=== PATIENT | female | born 1945 | race African-American/Black ===

== ENCOUNTER 2022-03-10 08:48 | Day surgery (SDC) | payer OTHER ==
[2022-03-04 11:37] VITALS: BMI 36.6
[2022-03-10] MEDS ORDERED: PROPOFOL 20 ML ONE ×2 (11:44→13:59)
[2022-03-10] MEDS ORDERED: VANCOMYCIN 1,000 MG VIAL (RESTRICTED TO ID ONLY) ONE (11:44)
[2022-03-10] MEDS ORDERED: ceFAZolin SODIUM 1 GM VIAL ONE ×2 (11:44→13:59)
[2022-03-10] MEDS ORDERED: BUPIVACAINE HCL 50 ML ONE (11:50)
[2022-03-10] MEDS ORDERED: MIDAZOLAM HCL 2 MG/2 ML SINGLE DOSE VIAL ONE ×3 (11:50→14:31)
[2022-03-10] MEDS ORDERED: BUPIVACAINE HCL/PF 2.5 MG/ML - 30 ML VIAL IJ ONE (11:51)
[2022-03-10] MEDS ORDERED: oxyCODONE HCL 5 MG TABLET PO PRN (13:14)
[2022-03-10] MEDS ORDERED: ONDANSETRON 4 MG/2 ML VIAL IVPUSH PRN ×2 (13:14→15:02)
[2022-03-10] MEDS ORDERED: MAGNESIUM HYDROX 2400MG/30ML ORAL SUSPENSION 30 ML CUP PO PRN (15:02)
[2022-03-10] MEDS ORDERED: KETOROLAC TROMETHAMINE 30 MG/1 ML VIAL ONE (15:09)
[2022-03-10] MEDS ORDERED: FENTANYL CITRATE/PF 50 MCG/ML VIAL ONE ×2 (15:10→15:21)
[2022-03-10] MEDS ORDERED: KETOROLAC TROMETHAMINE 15 MG/ML VIAL IVPUSH ONE (15:11)
[2022-03-10] MEDS ORDERED: ACETAMINOPHEN 1000 MG/100 ML BAG IVPB ONE (15:12)
[2022-03-10] MEDS ORDERED: LACTATED RINGERS SOLUTION 1,000 ML IV SCH (15:15)
[2022-03-10] MEDS ORDERED: oxyCODONE HCL 5 MG TABLET ONE (15:47)
[2022-03-10] MEDS: oxyCODONE HCL 5 MG TABLET PO PRN (15:53)
[2022-03-10] MEDS ORDERED: HYDROmorphone HCl 2 MG/ML VIAL IVPUSH PRN (16:00)
[2022-03-10] MEDS ORDERED: HYDROmorphone HCL/PF 1 MG/ML VIAL ONE (16:05)
[2022-03-10] MEDS ORDERED: CEFAZOLIN SODIUM 2 GM VIAL ONE ×2 (18:08→23:55)
[2022-03-10] MEDS ORDERED: DEXTROSE 5%-WATER 100 ML IVPB ONE ×2 (18:08→23:55)
[2022-03-10] MEDS: CEFAZOLIN SODIUM 2 GM in DEXTROSE 5%-WATER 100 ML IVPB SCH (18:10)
[2022-03-10] MEDS: oxyCODONE HCL 10 MG SUSTAINED ACTING TABLET PO SCH (21:38)
[2022-03-10] MEDS: SENNOSIDES/DOCUSATE COMBO (SENNA PLUS) TABLET (UD) PO SCH (21:40)
[2022-03-10] MEDS: ATORVASTATIN CA 20 MG TABLET (FP) PO SCH (21:40)
[2022-03-10] MEDS: ASPIRIN 81 MG CHEWABLE TABLETS PO SCH (21:40)
[2022-03-10] MEDS ORDERED: HYDROCHLOROTHIAZIDE 25 MG TABLET (FP) PO SCH (22:00)
[2022-03-11] MEDS: CEFAZOLIN SODIUM 2 GM in DEXTROSE 5%-WATER 100 ML IVPB SCH ×2 (00:05→06:18)
[2022-03-11] MEDS ORDERED: DEXTROSE 5%-WATER 100 ML IVPB ONE (05:45)
[2022-03-11] MEDS ORDERED: CEFAZOLIN SODIUM 2 GM VIAL ONE (05:46)
[2022-03-11] MEDS: oxyCODONE HCL 5 MG TABLET PO PRN ×2 (06:20→09:51)
[2022-03-11 09:06] LABS: CALCIUM 9.6 mg/dl (8.5-10); CREATININE 1.4 mg/dl (0.55-1.3)
[2022-03-11 09:08] LABS: HEMATOCRIT 27.8 % (32.4-45.2); HEMOGLOBIN 9.4 G/dL (10.7-15.3); MCH 32.2 pg (25.7-33.7); MCHC 33.8 g/dl (32.0-36.0); MEAN CELL VOLUME 95.3 fl (80-96); MEAN PLT VOLUME 7.8 fl (7.5-11.1); PLATELET COUNT 233.9 10^3/uL (134-434); RBC 2.92 10^6/uL (3.60-5.2); RDW 14.4 % (11.6-15.6); WHITE BLOOD COUNT 9.1 10^3/uL (4.0-10.8)
[2022-03-11] MEDS: PANTOPRAZOLE 40 MG TABLET PO SCH (09:43)
[2022-03-11] MEDS: CELECOXIB 200 MG CAPSULE PO SCH (09:43)
[2022-03-11] MEDS: ASPIRIN 81 MG CHEWABLE TABLETS PO SCH ×2 (09:43→21:40)
[2022-03-11] MEDS: SENNOSIDES/DOCUSATE COMBO (SENNA PLUS) TABLET (UD) PO SCH ×2 (09:43→21:40)
[2022-03-11] MEDS: QUINAPRIL HCL 20 MG TABLET PO SCH (09:43)
[2022-03-11 10:02] LABS: ALBUMIN 3.2 g/dl (3.4-5.0); BILIRUBIN,TOTAL 0.4 mg/dl (0.2-1); CALCIUM 9.6 mg/dl (8.5-10); CREATININE 1.4 mg/dl (0.55-1.3); TOT PROT 6.6 g/dl (6.4-8.2)
[2022-03-11 10:16] LABS: HEMATOCRIT 29.3 % (32.4-45.2); HEMOGLOBIN 9.9 G/dL (10.7-15.3); MCH 31.9 pg (25.7-33.7); MCHC 33.7 g/dl (32.0-36.0); MEAN CELL VOLUME 94.8 fl (80-96); MEAN PLT VOLUME 7.9 fl (7.5-11.1); PLATELET COUNT 259.4 10^3/uL (134-434); RBC 3.09 10^6/uL (3.60-5.2); RDW 14.1 % (11.6-15.6); WHITE BLOOD COUNT 9.5 10^3/uL (4.0-10.8)
[2022-03-11] MEDS: oxyCODONE HCL 10 MG SUSTAINED ACTING TABLET PO SCH ×2 (10:42→21:40)
[2022-03-11] MEDS: ATORVASTATIN CA 20 MG TABLET (FP) PO SCH (21:40)
[2022-03-12] MEDS: oxyCODONE HCL 5 MG TABLET PO PRN ×2 (07:41→14:41)
[2022-03-12 08:21] LABS: HEMATOCRIT 26.9 % (32.4-45.2); HEMOGLOBIN 9.1 G/dL (10.7-15.3); MCH 32.1 pg (25.7-33.7); MCHC 33.9 g/dl (32.0-36.0); MEAN CELL VOLUME 94.8 fl (80-96); PLATELET COUNT 235.1 10^3/uL (134-434); RBC 2.84 10^6/uL (3.60-5.2); RDW 13.9 % (11.6-15.6); WHITE BLOOD COUNT 10.9 10^3/uL (4.0-10.8)
[2022-03-12 08:42] LABS: HEMOGLOBIN 9.3 G/dL (10.7-15.3); MCH 31.6 pg (25.7-33.7); MEAN CELL VOLUME 95.4 fl (80-96); MEAN PLT VOLUME 7.8 fl (7.5-11.1); PLATELET COUNT 234.6 10^3/uL (134-434); RBC 2.93 10^6/uL (3.60-5.2); RDW 14.5 % (11.6-15.6); WHITE BLOOD COUNT 10.9 10^3/uL (4.0-10.8)
[2022-03-12 08:48] LABS: ALBUMIN 2.9 g/dl (3.4-5.0); BILIRUBIN,TOTAL 0.6 mg/dl (0.2-1); CALCIUM 9.4 mg/dl (8.5-10); CREATININE 1.6 mg/dl (0.55-1.3); TOT PROT 6.1 g/dl (6.4-8.2)
[2022-03-12] MEDS ORDERED: POTASSIUM CHLORIDE TABS 10 MEQ TABLET.ER (FP) PO ONE (09:00)
[2022-03-12] MEDS: oxyCODONE HCL 10 MG SUSTAINED ACTING TABLET PO SCH ×2 (09:27→21:12)
[2022-03-12] MEDS: CELECOXIB 200 MG CAPSULE PO SCH (09:27)
[2022-03-12] MEDS: SENNOSIDES/DOCUSATE COMBO (SENNA PLUS) TABLET (UD) PO SCH ×2 (09:28→21:12)
[2022-03-12] MEDS: QUINAPRIL HCL 20 MG TABLET PO SCH (09:28)
[2022-03-12] MEDS: ASPIRIN 81 MG CHEWABLE TABLETS PO SCH ×2 (09:28→21:12)
[2022-03-12] MEDS: PANTOPRAZOLE 40 MG TABLET PO SCH (09:28)
[2022-03-12] MEDS: ATORVASTATIN CA 20 MG TABLET (FP) PO SCH (21:12)
[2022-03-13] MEDS: CELECOXIB 200 MG CAPSULE PO SCH (09:39)
[2022-03-13] MEDS: SENNOSIDES/DOCUSATE COMBO (SENNA PLUS) TABLET (UD) PO SCH ×2 (09:39→21:10)
[2022-03-13] MEDS: QUINAPRIL HCL 20 MG TABLET PO SCH (09:39)
[2022-03-13] MEDS: PANTOPRAZOLE 40 MG TABLET PO SCH (09:39)
[2022-03-13] MEDS: ASPIRIN 81 MG CHEWABLE TABLETS PO SCH ×2 (09:39→21:10)
[2022-03-13] MEDS: oxyCODONE HCL 10 MG SUSTAINED ACTING TABLET PO SCH ×2 (09:39→21:10)
[2022-03-13 09:44] LABS: ALBUMIN 2.7 g/dl (3.4-5.0); BILIRUBIN,TOTAL 0.5 mg/dl (0.2-1); CALCIUM 9.1 mg/dl (8.5-10); CREATININE 1.9 mg/dl (0.55-1.3); TOT PROT 5.9 g/dl (6.4-8.2)
[2022-03-13] MEDS: MAG HYDROX/AL HYDROX/SIMETH 30 ML UNIT-DOSE CUP PO PRN ×2 (12:10→21:16)
[2022-03-13 12:21] LABS: HEMATOCRIT 25.8 % (32.4-45.2); HEMOGLOBIN 8.7 GM/dL (10.7-15.3); MCH 31.4 pg (25.7-33.7); MCHC 33.6 g/dl (32.0-36.0); MEAN CELL VOLUME 93.4 fl (80-96); MEAN PLT VOLUME 8.2 fl (7.5-11.1); PLATELET COUNT 255 10^3/uL (134-434); RBC 2.76 M/mm3 (3.60-5.2); RDW 13.6 % (11.6-15.6); WHITE BLOOD COUNT 10.1 K/mm3 (4.0-10.0)
[2022-03-13] MEDS ORDERED: POLYETHYLENE GLYCOL (HEALTHYLAX) 3350 17 GM PACKET PO PRN (13:57)
[2022-03-13] MEDS ORDERED: oxyCODONE HCL 5 MG TABLET PO PRN (14:03)
[2022-03-13] MEDS: ATORVASTATIN CA 20 MG TABLET (FP) PO SCH (21:10)
[2022-03-14] MEDS: SENNOSIDES/DOCUSATE COMBO (SENNA PLUS) TABLET (UD) PO SCH ×2 (09:33→21:48)
[2022-03-14] MEDS: QUINAPRIL HCL 20 MG TABLET PO SCH (09:33)
[2022-03-14] MEDS: PANTOPRAZOLE 40 MG TABLET PO SCH (09:33)
[2022-03-14] MEDS: ASPIRIN 81 MG CHEWABLE TABLETS PO SCH ×2 (09:33→21:46)
[2022-03-14] MEDS: oxyCODONE HCL 10 MG SUSTAINED ACTING TABLET PO SCH ×2 (09:34→21:46)
[2022-03-14] MEDS: ATORVASTATIN CA 20 MG TABLET (FP) PO SCH (21:46)
[2022-03-14] MEDS: MAG HYDROX/AL HYDROX/SIMETH 30 ML UNIT-DOSE CUP PO PRN (21:47)
[2022-03-15 08:18] LABS: CALCIUM 9.4 mg/dl (8.5-10); CREATININE 1.4 mg/dl (0.55-1.3)
[2022-03-15 09:34] LABS: BASO % 0.7 % (0-2.0); EOS % 1.5 % (0-4.5); HEMATOCRIT 28.5 % (32.4-45.2); HEMOGLOBIN 9.8 GM/dL (10.7-15.3); LYMPH % 16.7 % (8-40); MCH 31.5 pg (25.7-33.7); MCHC 34.5 g/dl (32.0-36.0); MEAN CELL VOLUME 91.4 fl (80-96); MEAN PLT VOLUME 7.7 fl (7.5-11.1); MONO % 8.1 % (3.8-10.2); PLATELET COUNT 285 10^3/uL (134-434); RBC 3.11 M/mm3 (3.60-5.2); RDW 13.5 % (11.6-15.6); WHITE BLOOD COUNT 8.3 K/mm3 (4.0-10.0)
[2022-03-15] MEDS: QUINAPRIL HCL 20 MG TABLET PO SCH (10:21)
[2022-03-15] MEDS: SENNOSIDES/DOCUSATE COMBO (SENNA PLUS) TABLET (UD) PO SCH (10:22)
[2022-03-15] MEDS: oxyCODONE HCL 10 MG SUSTAINED ACTING TABLET PO SCH (10:24)
[2022-03-15] MEDS: ASPIRIN 81 MG CHEWABLE TABLETS PO SCH (10:24)
[2022-03-15] MEDS: PANTOPRAZOLE 40 MG TABLET PO SCH (10:28)
[2022-03-15 14:12] VITALS: BP 145/57; PULSE 72; TEMP 98.8
== END 2022-03-15 15:05 | disposition home or self-care (01) ==
LOC: FASUSAT 08:48 → FM/S 16:55 → FASUSAT 03-15 15:05
PROVIDERS: ATTEND Orthopaedic Surgery Orthopaedic Surgery of the Spine
PROC: 0SR90JA Replacement of Right Hip Joint with Synthetic Substitute, Uncemented, Open Approach (ICD-10-PCS; principal; 2022-03-10 13:10)
DX: M16.11 Unilateral primary osteoarthritis, right hip (principal); I12.9 Hypertensive chronic kidney disease with stage 1 through stage 4 chronic kidney disease, or unspecified chronic kidney disease; N18.9 Chronic kidney disease, unspecified; E78.5 Hyperlipidemia, unspecified
CPT/HCPCS: 27130; C1776; 36415; 36430; 73502-TC-RT-FY; 80048; 80053; 83036; 84484; 85025; 85027; 86850; 86900; 86901; 86922; 88305-TC; 88311-TC; 93005; 94760; 97010-GP; 97116-GP; 97161-GP; P9058